=== PATIENT | female | born 2005 | race Hispanic/Latino ===

== ENCOUNTER 2024-02-16 15:29 | Emergency (ER) | payer MEDICAID, OTHER, SELFPAY ==
[2024-02-16] MEDS ORDERED: Bacitracin 1 PK ONE (16:40)
[2024-02-16] MEDS ORDERED: Ketorolac Tromethamine 30 MG (1 mL) VIAL ONE (16:40)
== END 2024-02-16 18:24 | disposition home or self-care (01) ==
LOC: ERS 15:29
DX: T22.111A Burn of first degree of right forearm, initial encounter (principal); X10.2XXA Contact with fats and cooking oils, initial encounter; Y93.G3 Activity, cooking and baking
CPT/HCPCS: 96372; 99282; J1885